=== PATIENT | female | born 1980 | race Two or more races ===

== ENCOUNTER 2022-09-01 11:10 | Outpatient (CLI) | payer OTHER | END 2022-09-01 11:19 | disposition home or self-care (01) | LOC: RAD 11:10 | PROVIDERS: ATTEND Physical Medicine & Rehabilitation | DX: M25.511 Pain in right shoulder (principal); M25.512 Pain in left shoulder ==

== ENCOUNTER → 2024-08-21 | Emergency (ER) | payer OTHER ==
[~2024-08-21] VITALS: Ht 165.1 cm; Wt 63.5 kg
[~2024-08-21] MED LIST: DEXAMETHASONE SODIUM PHOSPHATE 4 MG/ML VIAL IM ONE; DICLOFENAC SODI75 MG PO; KETOROLAC TROMETHAMINE 60 MG VIAL IM ONE; ZOLOFT100 MG PO
== END | disposition home or self-care (01) ==
LOC: ER 17:45
DX: M94.0 Chondrocostal junction syndrome [Tietze] (principal)

== ENCOUNTER → 2024-09-19 | Emergency (ER) | payer OTHER ==
[~2024-09-19] VITALS: Ht 162.6 cm; Wt 65.8 kg
[~2024-09-19] MED LIST changes: +AMOX1TAB5 PO; +BACITRACIN1 EACH TOP; -DEXAMETHASONE SODIUM PHOSPHATE 4 MG/ML VIAL IM ONE; +HYDROCORTISONE TOP; -KETOROLAC TROMETHAMINE 60 MG VIAL IM ONE
== END | disposition home or self-care (01) ==
LOC: ER 11:51
DX: L03.032 Cellulitis of left toe (principal); S90.465A Insect bite (nonvenomous), left lesser toe(s), initial encounter; W57.XXXA Bitten or stung by nonvenomous insect and other nonvenomous arthropods, initial encounter; Y93.89 Activity, other specified; Y92.89 Other specified places as the place of occurrence of the external cause; Y99.9 Unspecified external cause status